=== PATIENT | female | born 1960 | race Caucasian/White ===

== ENCOUNTER 2018-05-11 18:53 | Emergency (ER) | payer MEDICARE, MEDICAID ==
[~2018-05-11] VITALS: Ht 162.6 cm; Wt 96.4 kg
[~2018-05-11 18:53] MED LIST: PENI500T2 PO
[2018-05-11 18:55] VITALS: BP 126/84
== END 2018-05-11 20:41 | disposition home or self-care (01) ==
LOC: ER 18:54
DX: G89.29 Other chronic pain (principal); M25.561 Pain in right knee; M25.562 Pain in left knee; M54.9 Dorsalgia, unspecified; M19.90 Unspecified osteoarthritis, unspecified site; Z88.0 Allergy status to penicillin; Z79.899 Other long term (current) drug therapy; Z56.0 Unemployment, unspecified; Z59.0 Homelessness; Z60.2 Problems related to living alone
CPT/HCPCS: 99281